=== PATIENT | male | born 1990 | race African-American/Black ===

== ENCOUNTER 2017-08-07 18:36 | Emergency (ER) | payer OTHER, SELFPAY ==
[2017-08-07] MEDS ORDERED: Lidocaine 1% 20 ML MDV ONE (18:50)
[2017-08-07] MEDS ORDERED: traMADol HCl 50 MG TAB ONE (19:03)
[2017-08-07] MEDS ORDERED: Adacel (T-DAP) 0.5 ML VIAL ONE (19:04)
[2017-08-07] MEDS ORDERED: Bacitracin Zinc 1 Packet ONE (20:13)
[2017-08-07] MEDS ORDERED: Amoxicillin/Potassium Clav 875 MG TAB ONE (20:13)
--- NOTE | 2017-08-07 20:37 | RAD ---
RADIOGRAPH LEFT HAND THREE VIEWS: History: 26-year-old male status post acute penetrating trauma to the left hand from dog bite. FINDINGS: There are dressings in the soft tissues between the first and second digits. There is no fracture or dislocation. IMPRESSION: No osseous abnormality. POS: [facility]
== END 2017-08-07 20:36 | disposition home or self-care (01) ==
LOC: SCSER 18:36
DX: S61.452A Open bite of left hand, initial encounter (principal); W54.0XXA Bitten by dog, initial encounter
CPT/HCPCS: 12002; 90375; 90471; 90675; 90715; 96372; J2001

== ENCOUNTER 2023-10-07 12:14 | Outpatient (CLI) | payer OTHER | END 2023-10-07 12:15 | disposition home or self-care (01) | LOC: BICMRI 12:14 | PROVIDERS: ATTEND Podiatrist | DX: S86.011A Strain of right Achilles tendon, initial encounter (principal); M67.971 Unspecified disorder of synovium and tendon, right ankle and foot ==